=== PATIENT | male | born 1995 | race Hispanic/Latino ===

== ENCOUNTER 2022-05-04 13:04 | Emergency (ER) | payer SELFPAY ==
[~2022-05-04] VITALS: Ht 167.6 cm; Wt 53.0 kg
[2022-05-04] VITALS (8 sets, daily range): BP systolic 108–136; BP diastolic 61–91
[2022-05-04] MEDS ORDERED: CVS OMEPRAZOLE20 MG PO (14:18)
== END 2022-05-04 16:04 | disposition home or self-care (01) | DRG 556 ==
LOC: ED 13:04
DX: M25.572 Pain in left ankle and joints of left foot (principal)